=== PATIENT | female | born 1980 | race Asian ===

== ENCOUNTER → 2020-07-18 | Outpatient (CLI) | payer OTHER ==
[~2020-07-18] MED LIST: HYDR-3240 PO; IBUP-1222 PO
== END | disposition home or self-care (01) ==
LOC: CFH 12:15
PROVIDERS: ATTEND Obstetrics & Gynecology
DX: Z12.31 Encounter for screening mammogram for malignant neoplasm of breast (principal)
CPT/HCPCS: 77063; 77067